=== PATIENT | female | born 1950 | race Hispanic/Latino ===

== ENCOUNTER → 2018-08-17 | Outpatient (CLI) | payer MEDICARE | END | disposition home or self-care (01) | LOC: RAH 14:59 | PROVIDERS: ATTEND Internal Medicine | DX: J44.9 Chronic obstructive pulmonary disease, unspecified (principal) | CPT/HCPCS: 71046 ==

== ENCOUNTER → 2020-11-24 | Outpatient (CLI) | payer SELFPAY | END | disposition home or self-care (01) | LOC: OIH 14:58 | PROVIDERS: ATTEND Internal Medicine | DX: Z13.6 Encounter for screening for cardiovascular disorders (principal) | CPT/HCPCS: 75571 ==

== ENCOUNTER → 2023-09-14 | Outpatient (CLI) | payer MEDICARE | END | disposition home or self-care (01) | LOC: RAH 15:25 | PROVIDERS: ATTEND Internal Medicine | DX: M17.11 Unilateral primary osteoarthritis, right knee (principal); M25.552 Pain in left hip; M25.761 Osteophyte, right knee | CPT/HCPCS: 73502; 73562 ==